=== PATIENT | female | born 1970 | race African-American/Black ===

== ENCOUNTER 2023-06-16 18:12 | Emergency (ER) | payer OTHER, BC ==
[2023-06-16] MEDS: Dexamethasone 4 MG/ML SDV IM ONE (18:37)
[2023-06-16] MEDS: Ketorolac 30 MG/ML SDV IM ONE (18:37)
[2023-06-16] MEDS: Orphenadrine 60 MG/2 ML Inj IM ONE (18:38)
[2023-06-16] MEDS: Take Home: Cyclobenzaprine 10 MG Tab, 4 Tab Pack PO ONE (20:20)
== END 2023-06-16 20:20 | disposition home or self-care (01) ==
LOC: VM.ED 18:12
DX: M51.36 Other intervertebral disc degeneration, lumbar region (principal); Z79.899 Other long term (current) drug therapy
CPT/HCPCS: 72131; 96372; 99283; A9270-GY; J1100; J1885; J2360